=== PATIENT | female | born 1990 | race Caucasian/White ===

== ENCOUNTER 2020-07-23 01:00 | Emergency (ER) | payer OTHER ==
[~2020-07-23] VITALS: Ht 165.1 cm; Wt 90.7 kg
[2020-07-23 01:14] VITALS: BP 149/89; Ht 165.1 cm; Wt 90.7 kg
== END 2020-07-23 02:23 | disposition home or self-care (01) ==
LOC: ED 01:00
DX: N93.9 Abnormal uterine and vaginal bleeding, unspecified (principal)